=== PATIENT | female | born 2000 | race Asian ===

== ENCOUNTER 2021-04-28 14:40 | Outpatient (CLI) | payer OTHER, SELFPAY ==
--- NOTE | ~2021-04-28 | XR_ITS ---
EXAMINATION: XR finger 1st LT min 2V INDICATION: Left first finger pain TECHNIQUE: Three views of the left first finger are obtained. COMPARISON: None available FINDINGS: There is no fracture, dislocation, or subluxation. The bones, soft tissues, and joint space s are normal. IMPRESSION: 1. No acute osseous abnormality. Reviewed, dictated and finalized at location B. [employer]
== END 2021-04-28 14:41 ==
PROVIDERS: PCP Emergency Medicine; Visit Provider Emergency Medicine
DX: S69.82XA Other specified injuries of left wrist, hand and finger(s), initial encounter (principal); X58.XXXA Exposure to other specified factors, initial encounter
CPT/HCPCS: 73140